=== PATIENT | male | born 1955 | race Caucasian/White ===

== ENCOUNTER 2017-05-16 06:58 | Day surgery (SDC) | payer OTHER ==
[~2017-05-16] VITALS: Ht 160 cm; Wt 66.3 kg
[2017-05-16 07:52] VITALS: Ht 160 cm; Wt 66.3 kg
[2017-05-16] MEDS ORDERED: CARV3.1260 PO (08:03)
[2017-05-16] MEDS ORDERED: SITA50TA2 PO (08:03)
[2017-05-16] MEDS ORDERED: LANT3I SC (08:03)
[2017-05-16] MEDS ORDERED: SS SC (08:03)
[2017-05-16] MEDS ORDERED: ATOR40TA68 PO (08:03)
[2017-05-16] MEDS ORDERED: METF500T4 PO (08:03)
[2017-05-16] MEDS ORDERED: LISI-313 PO (08:03)
[2017-05-16] MEDS ORDERED: LIDOCAINE 2% (SDV) 5 ML INJ ONE ×2 (08:19→08:31)
[2017-05-16] MEDS ORDERED: PROPOFOL 20 ML ONE (08:19)
[2017-05-16 08:25] VITALS: BP 171/74; PULSE 60
--- NOTE | 2017-05-16 09:04 | OPPN ---
Date/Time of Note Date/Time of Note DATE: 05/16/17 TIME: 09:00 Proc Note GI Procedure Date 05/16/17 Indication: diagnostic Pre-procedure Diagnosis gerd wt loss r/o gi malignancy Post-procedure Diagnosis diffuse gastritis normal colon Procedure Performed: Endoscopy, Colonoscopy Surgeon see signature line Tourist Information Assistant none Anesthesia Type: MAC Anesthesiologist: MARY CHEUNG MD Tourniquet Time none EBL none Transfusion required none Biopsy 1: gastric bx Grafts/Implants none Tubes/Drains none Complication(s) none Disposition: home Procedure Description egd and colonoscopy under [facility] A C gastritis normal colon DEBBY MALDONADO MD May 16, 2017 09:04
[2017-05-16 09:35] VITALS: BP 129/66
[2017-05-16 09:40] VITALS: PULSE 52
--- NOTE | 2017-05-17 07:10 | GILP ---
DATE OF PROCEDURE: PROCEDURE: Colonoscopy. PREOPERATIVE DIAGNOSIS: Rule out colorectal neoplasm. History of weight loss. POSTOPERATIVE DIAGNOSES: Normal colonoscopy. DESCRIPTION OF PROCEDURE: After informed written consent was obtained, the patient was asked to lie on the left lateral side. Intravenous anesthesia was given by anesthesiologist, Dr. Calderon. Whe n the patient became somnolent, the Olympus video colonoscope was introduced into the rectum and sco pe was advanced all the way to the cecum. Entire colon appeared normal. Some liquid stool noted ar ound the colon which was aspirated. Small polyps cannot be excluded. No significant lesions noted. On the way out, again further evaluation was carried out. Retroflexion was performed. No additio nal abnormalities detected, or any abnormality detected. Scope was withdrawn and procedure was term inated. PLAN: Recommend further workup. Dictated By: DEBBY SANCHEZ/OCTAVIO Conf#: [id number] DID#: [id number]
--- NOTE | 2017-05-17 07:10 | GILP ---
DATE OF PROCEDURE: PROCEDURE: Esophagogastroduodenoscopy. PREOPERATIVE DIAGNOSIS: Patient presenting with a history of chronic heartburn, unresponsive to rou rick therapy. He has lost a great deal of weight. Rule out esophagitis, rule out Pritchett's esophag us. POSTOPERATIVE DIAGNOSIS: Diffuse moderate degree of gastritis esophagus appeared normal. DESCRIPTION OF PROCEDURE: After informed written consent was obtained, the patient was asked to lie on the left lateral side. Intravenous anesthesia was given by anesthesiologist, Dr. Calderon, and the patient became somnolent, the Olympus video upper endoscope was introduced into the oropharynx, then into the esophagus. Esophagus appeared normal with no mucosal abnormality. Endoscope at this time was advanced into the stomach. Entire stomach showed evidence of severe degree of erythema and friability. Biopsies were obtained from the antrum, the lesser curvature and the fundus to rule ou t H. pylori infection. Mucosa of The duodenum was examined up to the end of the third portion, whic h appeared normal. Endoscope at this time was withdrawn and on the way out, no additional abnormali ties detected and the procedure was terminated. PLAN: Recommend omeprazole 40 mg a day q.a.m. wait for the pathology report. Dictated By: DEBBY SANCHEZ/OCTAVIO Conf#: [id number] DID#: [id number]
== END 2017-05-16 16:51 | disposition home or self-care (01) ==
LOC: GIL 06:58
PROVIDERS: ATTEND Internal Medicine Gastroenterology
DX: R12 Heartburn (principal); K21.0 Gastro-esophageal reflux disease with esophagitis; K29.50 Unspecified chronic gastritis without bleeding; I10 Essential (primary) hypertension; E11.9 Type 2 diabetes mellitus without complications; E78.5 Hyperlipidemia, unspecified
CPT/HCPCS: 82962; 88305; 88312; 88313